=== PATIENT | female | born 1955 | race African-American/Black ===

== ENCOUNTER 2019-09-26 13:43 | Emergency (ER) | payer BC, OTHER ==
[2019-09-26 14:19] VITALS: RESP 18; TEMP 97.8
[2019-09-26] MEDS ORDERED: ONDANSETRON 4 MG/2 ML VIAL IVP STA (15:49)
[2019-09-26] MEDS ORDERED: SODIUM CHLORIDE 0.9% 1,000 ML IV STA (15:49)
[2019-09-26] MEDS ORDERED: PANTOPRAZOLE 40 MG/10 ML VIAL IVP STA (15:49)
--- NOTE | 2019-09-26 15:50 | ED ---
Abdominal Pain HPI - General Chief Complaint: Abdominal Pain Stated Complaint: Stomach pain; nausea Time Seen by Provider: 09/26/19 15:21 Source: patient, RN notes reviewed, old records reviewed Mode of arrival: ambulatory Limitations: no limitations - History of Present Illness Initial Comments: This is a 64-year-old female here for evaluation patient has a for evaluation regarding abdominal pain epigastric abdominal pain with nausea vomiting. Persi stent nausea or vomiting. No recent travel history or sick contacts. Patient has history of gastritis and PUD. No significant recent drug or alcohol abuse. Patient does not take daily antacids. Patient denies history of abdominal surgery. States she has history of gastric ulcer. MD Complaint: abdominal pain (The gastric) -: hour(s) Location: epigastric Radiation: epigastric Migration to: no migration Severity: moderate Severity scale (1-10): 4 Quality: cramping Consistency: constant Improves With: nothing Worsens With: nothing Associated Symptoms: nausea - Related Data Previous Rx's Medication Instructions Recorded Famotidine [Pepcid] 20 mg PO BID #60 tablet 09/26/19 Ondansetron Odt [Zofran ODT] 4 mg PO Q8HR PRN #30 tab 09/26/19 Pantoprazole Sodium [Protonix] 40 mg PO DAILY #30 tablet. 09/26/19 Allergies Allergy/AdvReac Type Severity Reaction Status Date / Time No Known Allergies Allergy Verified 09/26/19 14:16 Review of Systems ROS Statement: Those systems with pertinent positive or pertinent negative responses have been documented in the HPI. ROS Other: All systems not noted in ROS Statement are negative. Past Medical History Past Medical History: No Reported History Additional Past Medical History / Comment(s): peptic ulcer History of Any Multi-Drug Resistant Organisms: None Reported Past Surgical History: No Surgical Hx Reported Past Psychological History: Depression Smoking Status: Former smoker Past Alcohol Use History: Occasional Past Drug Use History: None Reported General Exam Limitations: no limitations General appearance: alert, in no apparent distress, obese Head exam: Present: atraumatic, normocephalic, normal inspection Eye exam: Present: normal appearance, PERRL, EOMI. Absent: scleral icterus, conjunctival injection, periorbital swelling ENT exam: Present: normal exam, mucous membranes moist Neck exam: Present: normal inspection. Absent: tenderness, meningismus, lymphadenopathy Respiratory exam: Present: normal lung sounds bilaterally. Absent: respiratory distress, wheezes, rales, rhonchi, stridor Cardiovascular Exam: Present: regular rate, normal rhythm, normal heart sounds. Absent: systolic murmur, diastolic murmur, rubs, gallop, clicks GI/Abdominal exam: Present: soft, distended, tenderness (Right upper quadrant), normal bowel sounds. Absent: guarding, rebound, rigid Extremities exam: Present: normal inspection, full ROM, normal capillary refill. Absent: tenderness, pedal edema, joint swelling, calf tenderness Back exam: Present: normal inspection Neurological exam: Present: alert, oriented X3, CN II-XII intact Psychiatric exam: Present: normal affect, normal mood Skin exam: Present: warm, dry, intact, normal color. Absent: rash Course Vital Signs 09/26/19 09/26/19 14:16 18:42 Temperature 97.8 F Pulse Rate 69 66 Respiratory 18 18 Rate Blood Pressure 143/73 140/86 O2 Sat by Pulse 99 95 Oximetry - Reevaluation(s) Reevaluation #1: 09/26/19 19:01 Medical records reviewed Reevaluation #2: 09/26/19 19:02 Symptoms are improved and resolved Medical Decision Making - Medical Decision Making 64 female presents today for evaluation regards to nausea vomiting and abdominal pain. Gastritis with possible underlying mild ulcerative disease. No acute distress. Patient is discharged home - Lab Data Result diagrams: 09/26/19 16:10 09/26/19 16:10 Lab Results 09/26/19 09/26/19 09/26/19 Range/Units 16:10 16:10 16:10 WBC 5.8 (3.8-10.6) k/uL RBC 4.29 (3.80-5.40) m/uL Hgb 13.0 (11.4-16.0) gm/dL Hct 38.8 (34.0-46.0) % MCV 90.6 (80.0-100.0) fL MCH 30.3 (25.0-35.0) pg MCHC 33.4 (31.0-37.0) g/dL RDW 12.5 (11.5-15.5) % Plt Count 240 (150-450) k/uL Neutrophils % 63 % Lymphocytes % 26 % Monocytes % 6 % Eosinophils % 2 % Basophils % 0 % Neutrophils # 3.7 (1.3-7.7) k/uL Lymphocytes # 1.5 (1.0-4.8) k/uL Monocytes # 0.3 (0-1.0) k/uL Eosinophils # 0.1 (0-0.7) k/uL Basophils # 0.0 (0-0.2) k/uL Sodium 141 (137-145) mmol/L Potassium 3.9 (3.5-5.1) mmol/L Chloride 109 H (98-107) mmol/L Carbon Dioxide 25 (22-30) mmol/L Anion Gap 7 mmol/L BUN 14 (7-17) mg/dL Creatinine 0.75 (0.52-1.04) mg/dL Est GFR (CKD-EPI)AfAm >90 (>60 ml/min/1.73 sqM) Est GFR (CKD-EPI)NonAf 86 (>60 ml/min/1.73 sqM) Glucose 103 H (74-99) mg/dL Plasma Lactic Acid Og 0.7 (0.7-2.0) mmol/L Calcium 9.3 (8.4-10.2) mg/dL Total Bilirubin 0.9 (0.2-1.3) mg/dL AST 32 (14-36) U/L ALT 33 (9-52) U/L Alkaline Phosphatase 70 (38-126) U/L Creatine Kinase 358 H (30-135) U/L Total Protein 7.4 (6.3-8.2) g/dL Albumin 4.0 (3.5-5.0) g/dL Amylase 43 (30-110) U/L Lipase 129 (23-300) U/L Urine Color Urine Appearance (Clear) Urine pH (5.0-8.0) Ur Specific [place] (1.001-1.035) Urine Protein (Negative) Urine Glucose (UA) (Negative) Urine Ketones (Negative) Urine Blood (Negative) Urine Nitrite (Negative) Urine Bilirubin (Negative) Urine Urobilinogen (<2.0) mg/dL Ur Leukocyte Esterase (Negative) Urine RBC (0-5) /hpf Urine WBC (0-5) /hpf Ur Squamous Epith Cells (0-4) /hpf Amorphous Sediment (None) /hpf Urine Mucus (None) /hpf 12/07/19 Range/Units 17:30 WBC (3.8-10.6) k/uL RBC (3.80-5.40) m/uL Hgb (11.4-16.0) gm/dL Hct (34.0-46.0) % MCV (80.0-100.0) fL MCH (25.0-35.0) pg MCHC (31.0-37.0) g/dL RDW (11.5-15.5) % Plt Count (150-450) k/uL Neutrophils % % Lymphocytes % % Monocytes % % Eosinophils % % Basophils % % Neutrophils # (1.3-7.7) k/uL Lymphocytes # (1.0-4.8) k/uL Monocytes # (0-1.0) k/uL Eosinophils # (0-0.7) k/uL Basophils # (0-0.2) k/uL Sodium (137-145) mmol/L Potassium (3.5-5.1) mmol/L Chloride (98-107) mmol/L Carbon Dioxide (22-30) mmol/L Anion Gap mmol/L BUN (7-17) mg/dL Creatinine (0.52-1.04) mg/dL Est GFR (CKD-EPI)AfAm (>60 ml/min/1.73 sqM) Est GFR (CKD-EPI)NonAf (>60 ml/min/1.73 sqM) Glucose (74-99) mg/dL Plasma Lactic Acid Og (0.7-2.0) mmol/L Calcium (8.4-10.2) mg/dL Total Bilirubin (0.2-1.3) mg/dL AST (14-36) U/L ALT (9-52) U/L Alkaline Phosphatase (38-126) U/L Creatine Kinase (30-135) U/L Total Protein (6.3-8.2) g/dL Albumin (3.5-5.0) g/dL Amylase (30-110) U/L Lipase (23-300) U/L Urine Color Yellow Urine Appearance Cloudy H (Clear) Urine pH 6.0 (5.0-8.0) Ur Specific [place] 1.029 (1.001-1.035) Urine Protein Trace H (Negative) Urine Glucose (UA) Negative (Negative) Urine Ketones 1+ H (Negative) Urine Blood Negative (Negative) Urine Nitrite Negative (Negative) Urine Bilirubin Negative (Negative) Urine Urobilinogen 2.0 (<2.0) mg/dL Ur Leukocyte Esterase Moderate H (Negative) Urine RBC 1 (0-5) /hpf Urine WBC 4 (0-5) /hpf Ur Squamous Epith Cells 3 (0-4) /hpf Amorphous Sediment Rare H (None) /hpf Urine Mucus Many H (None) /hpf - Radiology Data Radiology results: report reviewed (US Gallbladder is negative for acute), image reviewed Disposition Clinical Impression: Nausea & vomiting, Gastritis Disposition: HOME SELF-CARE Condition: Good Instructions (If sedation given, give patient instructions): Gastritis (ED) Is patient prescribed a controlled substance at d/c from ED?: No Referrals: Nonstaff,Physician [REFERRING] - 1-2 days
[2019-09-26 16:26] LABS: Basophils % (A) 0 %; Eosinophils # (A) 0.1 k/uL (0-0.7); Eosinophils % (A) 2 %; HCT 38.8 % (34.0-46.0); Lymphocytes # (A) 1.5 k/uL (1.0-4.8); Lymphocytes % (A) 26 %; MCH 30.3 pg (25.0-35.0); MCHC 33.4 g/dL (31.0-37.0); MCV 90.6 fL (80.0-100.0); Mean Platelet Volume 7.4; Monocytes # (A) 0.3 k/uL (0-1.0); Monocytes % (A) 6 %; Neutrophils # (A) 3.7 k/uL (1.3-7.7); Neutrophils % (A) 63 %; Platelet Count 240 k/uL (150-450); RBC 4.29 m/uL (3.80-5.40); RDW 12.5 % (11.5-15.5); WBC 5.8 k/uL (3.8-10.6)
[2019-09-26 16:31] LABS: ALT 33 U/L (9-52); AST 32 U/L (14-36); African American GFR (CKD) >90 (>60 ml/min/1.73 sqM); Alkaline Phosphatase 70 U/L (38-126); Amylase 43 U/L (30-110); Anion Gap 7 mmol/L; Blood Urea Nitrogen 14 mg/dL (7-17); Calcium 9.3 mg/dL (8.4-10.2); Carbon Dioxide 25 mmol/L (22-30); Chloride 109 mmol/L (98-107); Creatine Kinase 358 U/L (30-135); Glucose 103 mg/dL (74-99); Non-African American GFR(CKD) 86 (>60 ml/min/1.73 sqM); Potassium 3.9 mmol/L (3.5-5.1); Sodium 141 mmol/L (137-145); Total Bilirubin 0.9 mg/dL (0.2-1.3); Total Protein 7.4 g/dL (6.3-8.2)
--- NOTE | 2019-09-26 17:18 | US ---
EXAMINATION TYPE: US gallbladder DATE OF EXAM: 09/26/2019 COMPARISON: NONE CLINICAL HISTORY: pain. Pain, nausea EXAM MEASUREMENTS: Liver Length: 15.3 cm Gallbladder Wall: 0.2 cm CBD: 0.6 cm Right Kidney: 11.1 x 3.6 x 4.3 cm Pancreas: Obscured by bowel gas, visualized portions heterogeneous Liver: wnl Gallbladder: wnl Evidence for sonographic Gregorio's sign: No CBD: wnl Right Kidney: No hydronephrosis or masses seen IMPRESSION: 1. Limited assessment pancreas due to bowel gas. Correlate with pancreatic enzymes if there is concer n for pancreatitis as the pancreas is slightly heterogeneous. 2. No evidence of gallstones. The gallbladder does appear to be distended but no wall thickening. 3. CBD measures at the upper limits of normal for the patient's age group at 6 mm. Correlate clinical ly.
[2019-09-26 17:58] LABS: Amorphous Sediment,Urine Rare /hpf; Appearance,Urine Cloudy (Clear); Bilirubin,Urine Negative (Negative); Blood,Urine Negative (Negative); Color,Urine Yellow; Glucose,Urine (UA) Negative (Negative); Ketones,Urine 1+ (Negative); Leukocyte Esterase,Urine Moderate (Negative); Mucus,Urine Many /hpf; Nitrite,Urine Negative (Negative); Protein,Urine Trace (Negative); RBC,Urine 1 /hpf (0-5); Specific Gravity,Urine 1.029 (1.001-1.035); Squamous Epithelial Cell,Urine 3 /hpf (0-4); WBC,Urine 4 /hpf (0-5)
[2019-09-26 18:44] VITALS: BP 140/86; PULSE 66
== END 2019-09-26 19:12 | disposition home or self-care (01) ==
LOC: EC 13:43
DX: K29.70 Gastritis, unspecified, without bleeding (principal); Z87.891 Personal history of nicotine dependence
CPT/HCPCS: 36415; 80053; 82150; 82550; 83605; 83690; 85025; 81001; 76705; 99284; 96374; 96375; 96361 ×2; J2405; C9113